=== PATIENT | female | born 1965 | race Caucasian/White ===

== ENCOUNTER → 2020-01-15 | Outpatient (CLI) | payer OTHER ==
[2020-01-15 11:55] LABS: Source, Urine Clean Catch
[2020-01-15 13:59] LABS: Bilirubin, Urine Neg (Neg); Blood, Urine 3+ (Neg); Glucose Qualitative, Urine Neg (Neg); Ketones, Urine Neg (Neg); Leukocyte Esterase, Urine 3+ (Neg); Nitrite, Urine Neg (Neg); Protein, Urine Neg (Neg); Urobilinogen, Urine NORM (Normal); pH, Urine 6.5 (5.0-8.0)
[2020-01-15 14:17] LABS: Appearance, Urine Hazy (Clear); Bacteria Many /hpf; Color, Urine Yellow (P-Yellow); Squamous Epithelial Cells Few /hpf (Few); White Blood Cells, Urine 25-50 /hpf (0-5)
== END | disposition home or self-care (01) ==
LOC: LAB 11:00 → LAB SHORT 11:00
PROVIDERS: Obstetrics & Gynecology
DX: R30.9 Painful micturition, unspecified (principal)
CPT/HCPCS: 81001; 87077; 87086; 87186